=== PATIENT | female | born 1945 | race African-American/Black ===

== ENCOUNTER 2021-02-14 18:54 | Inpatient (IN) | payer OTHER ==
[~2021-02-14] VITALS: Ht 162.6 cm; Wt 105.8 kg
[2021-02-14 19:47] LABS: Basophils # (auto) 0.1 10 ^3/uL (0-0.2); Basophils % (auto) 0.7 % (0.0-2.0); Eosinophils # (auto) 0.2 10 ^3/uL (0-0.8); Eosinophils % (auto) 2.1 % (0.0-7.0); Hematocrit 42.6 % (36.0-46.0); Hemoglobin 14.3 g/dL (12.2-16.2); Lymphocytes # (auto) 1.6 10 ^3/uL (0.4-5.4); Lymphocytes % (auto) 17.4 % (10.0-50.0); Mean Corpuscular Hemoglobin 30.3 pg (28.0-32.0); Mean Corpuscular Hgb Conc. 33.4 g/dL (32.0-36.0); Mean Corpuscular Volume 90.7 fL (80.0-100.0); Monocytes # (auto) 1.1 10 ^3/uL (0-1.3); Monocytes % (auto) 11.8 % (0.0-12.0); Neutrophils # (auto) 6.1 10 ^3/uL (1.6-8.6); Red Cell Distribution Width 14.5 % (11.8-14.3); White Blood Cell 8.9 10^3/uL (4.4-10.8)
[2021-02-14 19:52] LABS: Albumin 2.9 g/dL (3.4-5.0); BUN/Creatinine Ratio 13.2; Calcium 9.3 mg/dL (8.5-10.1); Potassium 3.7 mmol/L (3.5-5.1)
[2021-02-14 20:03] LABS: Bilirubin, Total 1.2 mg/dL (0.2-1.0)
[2021-02-15] MEDS ORDERED: MORPHINE SULFATE INJECTION 2 MG/ML SYRG IV PRN (01:00)
[2021-02-15] MEDS ORDERED: hydrALAZINE HCL 20 MG/ML VL IV PRN (01:00)
[2021-02-15] MEDS ORDERED: MORPHINE SULFATE 4 MG/ML SYR/VIAL IV PRN (01:00)
[2021-02-15] MEDS ORDERED: NITROGLYCERIN 0.4 MG SL TAB SL PRN (01:00)
[2021-02-15] MEDS ORDERED: DOCUSATE SOD 100 MG CAP PO PRN (01:00)
[2021-02-15] MEDS: SODIUM CHLOR 0.9% PF (SALINE LOCK) 10ML VIAL/SYR IV SCH ×3 (06:46→20:40)
[2021-02-15 07:53] LABS: Basophils # (auto) 0.1 10 ^3/uL (0-0.2); Basophils % (auto) 0.8 % (0.0-2.0); Eosinophils # (auto) 0.2 10 ^3/uL (0-0.8); Eosinophils % (auto) 2.1 % (0.0-7.0); Hematocrit 43.2 % (36.0-46.0); Hemoglobin 14.8 g/dL (12.2-16.2); Lymphocytes # (auto) 1.6 10 ^3/uL (0.4-5.4); Lymphocytes % (auto) 17.7 % (10.0-50.0); Mean Corpuscular Hgb Conc. 34.3 g/dL (32.0-36.0); Mean Corpuscular Volume 90.5 fL (80.0-100.0); Monocytes # (auto) 1.1 10 ^3/uL (0-1.3); Neutrophils # (auto) 6.1 10 ^3/uL (1.6-8.6); Neutrophils % (auto) 67.4 % (37.0-80.0); Nucleated Red Blood Cells % 0.1 %; Red Blood Cells 4.77 10^6/uL (4.0-5.20); Red Cell Distribution Width 14.5 % (11.8-14.3)
[2021-02-15 08:12] LABS: Albumin 2.8 g/dL (3.4-5.0); Calcium 9.5 mg/dL (8.5-10.1); Magnesium 2.3 mg/dL (1.6-2.6); Potassium 3.9 mmol/L (3.5-5.1)
[2021-02-15 08:16] LABS: BUN/Creatinine Ratio 17.1; Bilirubin, Total 1.6 mg/dL (0.2-1.0); Total Protein 7.1 g/dL (6.4-8.2)
[2021-02-15] MEDS: FUROSEMIDE 40 MG/4 ML VIAL IV SCH (08:21)
[2021-02-15] MEDS: ISOSORBIDE MONONITRATE ER 60 MG TAB PO SCH (08:21)
[2021-02-15] MEDS: ZINC SULFATE 220mg CAP or TAB PO SCH (08:21)
[2021-02-15] MEDS: MULTIPLE VITAMIN TAB PO SCH (08:22)
[2021-02-15] MEDS: ASCORBIC ACID 500 MG TAB PO SCH ×2 (08:22→20:41)
[2021-02-15] MEDS: ONDANSETRON HCL 4 MG/2 ML VIAL IV PRN (09:45)
[2021-02-15] MEDS ORDERED: FAMOTIDINE 20 MG TAB PO SCH (10:00)
[2021-02-15] MEDS ORDERED: ENOXAPARIN SOD 40 MG/0.4 ML SYRINGE SC SCH (10:00)
[2021-02-15 12:05] VITALS: BP 119/71
[2021-02-15 13:00] VITALS: BP 119/71
[2021-02-15 17:00] VITALS: BP 115/72
[2021-02-15] MEDS ORDERED: FAMO20TA10 PO (18:54)
[2021-02-15] MEDS: FAMOTIDINE 20 MG TAB PO SCH (20:41)
[2021-02-15] MEDS: ENOXAPARIN SOD 100 MG/1 ML SYRINGE SC SCH (20:41)
[2021-02-15] MEDS: ATORVASTATIN 20 MG TAB PO SCH (20:41)
[2021-02-15 22:00] VITALS: BP 105/51
[2021-02-15] MEDS ORDERED: WARF2TAB49 PO (22:35)
[2021-02-15] MEDS ORDERED: ASPI-543 PO (22:38)
[2021-02-15] MEDS ORDERED: BISO1TAB17 PO ×2 (22:38→22:46)
[2021-02-15] MEDS ORDERED: FURO1TAB33 PO (22:38)
[2021-02-15] MEDS ORDERED: DIGO0.12 PO (22:46)
[2021-02-15] MEDS ORDERED: FLUO60TA7 PO (22:46)
[2021-02-15] MEDS ORDERED: ATO40T PO (22:46)
[2021-02-15] MEDS ORDERED: NITR1SPR TL (22:46)
[2021-02-15] MEDS ORDERED: ISOS20TA49 PO (22:46)
[2021-02-15] MEDS ORDERED: SPIR25TA8 PO (22:46)
[2021-02-15] MEDS ORDERED: POTA1TAB61 PO (22:46)
[2021-02-15] MEDS ORDERED: FLUT0.05 NAS (22:46)
[2021-02-15] MEDS ORDERED: SOTA80TA57 PO (22:46)
[2021-02-15] MEDS ORDERED: TIOTCAP (22:46)
[2021-02-15] MEDS ORDERED: IPRA0.03 (22:46)
[2021-02-16 05:00] VITALS: BP 125/52
[2021-02-16] MEDS: SODIUM CHLOR 0.9% PF (SALINE LOCK) 10ML VIAL/SYR IV SCH ×3 (05:45→22:08)
[2021-02-16 07:12] LABS: Basophils # (auto) 0.1 10 ^3/uL (0-0.2); Basophils % (auto) 0.8 % (0.0-2.0); Eosinophils # (auto) 0.1 10 ^3/uL (0-0.8); Eosinophils % (auto) 1.6 % (0.0-7.0); Hematocrit 46.2 % (36.0-46.0); Hemoglobin 15.5 g/dL (12.2-16.2); Lymphocytes # (auto) 1.5 10 ^3/uL (0.4-5.4); Lymphocytes % (auto) 16.1 % (10.0-50.0); Mean Corpuscular Hemoglobin 30.7 pg (28.0-32.0); Mean Corpuscular Hgb Conc. 33.5 g/dL (32.0-36.0); Mean Corpuscular Volume 91.7 fL (80.0-100.0); Monocytes % (auto) 10.3 % (0.0-12.0); Neutrophils # (auto) 6.7 10 ^3/uL (1.6-8.6); Neutrophils % (auto) 71.2 % (37.0-80.0); Red Blood Cells 5.04 10^6/uL (4.0-5.20); Red Cell Distribution Width 14.8 % (11.8-14.3); White Blood Cell 9.3 10^3/uL (4.4-10.8)
[2021-02-16 07:41] LABS: Calcium 9.7 mg/dL (8.5-10.1); Magnesium 2.1 mg/dL (1.6-2.6); Potassium 3.6 mmol/L (3.5-5.1)
[2021-02-16] MEDS ORDERED: IPRATROPIUM BROM 0.5 MG/2.5ML INH SOL NEB PRN (07:45)
[2021-02-16 07:48] LABS: BUN/Creatinine Ratio 17.8; Bilirubin, Total 1.6 mg/dL (0.2-1.0); Total Protein 7.4 g/dL (6.4-8.2)
[2021-02-16 09:00] VITALS: BP 126/67
[2021-02-16 09:27] VITALS: BP 125/52
[2021-02-16] MEDS: FUROSEMIDE 40 MG/4 ML VIAL IV SCH (09:44)
[2021-02-16] MEDS: FAMOTIDINE 20 MG TAB PO SCH ×2 (09:45→22:07)
[2021-02-16] MEDS: ENOXAPARIN SOD 100 MG/1 ML SYRINGE SC SCH (09:45)
[2021-02-16] MEDS: ASCORBIC ACID 500 MG TAB PO SCH ×2 (09:45→22:07)
[2021-02-16] MEDS: MULTIPLE VITAMIN TAB PO SCH (09:46)
[2021-02-16] MEDS: POTASSIUM CHL 10 Meq TABLET PO SCH (09:46)
[2021-02-16] MEDS: ZINC SULFATE 220mg CAP or TAB PO SCH (09:46)
[2021-02-16] MEDS: ISOSORBIDE MONONITRATE ER 60 MG TAB PO SCH (09:46)
[2021-02-16] MEDS: FLUTICASONE PROP NASAL SPR 0.05 % (50MCG) 16GM EACHNOSTRI SCH ×2 (10:40→22:08)
[2021-02-16 13:00] VITALS: BP 113/70
[2021-02-16] MEDS ORDERED: POTASSIUM CHLORIDE 40 MEQ, LIDOCAINE 1% (LOCAL ANESTH.) 4 ML in SODIUM CHL 0.9% 250 ML IV ONE (15:30)
[2021-02-16 17:00] VITALS: BP 106/64
[2021-02-16] MEDS: MAGNESIUM SULFATE 1GM/100ML 100 ML IV SCH ×2 (17:00→17:21)
[2021-02-16 22:00] VITALS: BP 107/72
[2021-02-16] MEDS: ATORVASTATIN 20 MG TAB PO SCH (22:07)
[2021-02-16] MEDS ORDERED: MAGNESIUM SULFATE 1GM/100ML 100 ML IV ONE (22:17)
[2021-02-17] MEDS: MAGNESIUM SULFATE 1GM/100ML 100 ML IV SCH ×2 (00:53→02:10)
[2021-02-17] MEDS ORDERED: MAGNESIUM SULFATE 1GM/100ML 100 ML IV ONE (01:59)
[2021-02-17 05:00] VITALS: BP 129/74
[2021-02-17] MEDS: SODIUM CHLOR 0.9% PF (SALINE LOCK) 10ML VIAL/SYR IV SCH ×3 (05:29→22:18)
[2021-02-17 07:37] LABS: Potassium 4.5 mmol/L (3.5-5.1)
[2021-02-17 07:39] LABS: INR 1.92 (0.9-1.15)
[2021-02-17 07:45] LABS: Magnesium 2.8 mg/dL (1.6-2.6)
[2021-02-17] MEDS: ONDANSETRON HCL 4 MG/2 ML VIAL IV PRN (08:02)
[2021-02-17] MEDS: ISOSORBIDE MONONITRATE ER 60 MG TAB PO SCH (09:04)
[2021-02-17] MEDS: METOPROLOL SUCCINATE XL 50 MG TAB PO SCH (09:04)
[2021-02-17] MEDS: ASCORBIC ACID 500 MG TAB PO SCH ×2 (09:04→22:18)
[2021-02-17] MEDS: FAMOTIDINE 20 MG TAB PO SCH ×2 (09:05→22:18)
[2021-02-17] MEDS: FUROSEMIDE 40 MG/4 ML VIAL IV SCH (09:05)
[2021-02-17] MEDS: MULTIPLE VITAMIN TAB PO SCH (09:05)
[2021-02-17] MEDS: ZINC SULFATE 220mg CAP or TAB PO SCH (09:05)
[2021-02-17] MEDS: POTASSIUM CHL 10 Meq TABLET PO SCH (09:06)
[2021-02-17] MEDS: FLUTICASONE PROP NASAL SPR 0.05 % (50MCG) 16GM EACHNOSTRI SCH ×2 (09:15→22:18)
[2021-02-17 09:19] VITALS: BP 131/65
[2021-02-17] MEDS ORDERED: ENOXAPARIN SOD 40 MG/0.4 ML SYRINGE SC SCH (10:00)
[2021-02-17 13:00] VITALS: BP 111/72
[2021-02-17 16:29] VITALS: BP 113/65
[2021-02-17] MEDS ORDERED: WARFARIN SODIUM 2 MG TAB PO ONE (17:00)
[2021-02-17 22:00] VITALS: BP 99/60
[2021-02-17] MEDS: ATORVASTATIN 20 MG TAB PO SCH (22:18)
[2021-02-18 05:00] VITALS: BP 104/71
[2021-02-18] MEDS: SODIUM CHLOR 0.9% PF (SALINE LOCK) 10ML VIAL/SYR IV SCH ×3 (05:15→21:36)
[2021-02-18] MEDS: ONDANSETRON HCL 4 MG/2 ML VIAL IV PRN (06:09)
[2021-02-18 07:11] LABS: INR 1.65 (0.9-1.15)
[2021-02-18] MEDS ORDERED: ADENOSINE 88 MG in GIVE UN-DILUTED 0 ML IV STA (08:07)
[2021-02-18 09:03] VITALS: BP 100/54
[2021-02-18] MEDS: METOPROLOL SUCCINATE XL 50 MG TAB PO SCH (10:00)
[2021-02-18] MEDS: ISOSORBIDE MONONITRATE ER 60 MG TAB PO SCH (10:00)
[2021-02-18] MEDS: FUROSEMIDE 40 MG/4 ML VIAL IV SCH (10:52)
[2021-02-18] MEDS: ZINC SULFATE 220mg CAP or TAB PO SCH (10:52)
[2021-02-18] MEDS: FLUTICASONE PROP NASAL SPR 0.05 % (50MCG) 16GM EACHNOSTRI SCH ×2 (10:52→21:37)
[2021-02-18] MEDS: FAMOTIDINE 20 MG TAB PO SCH ×2 (10:53→21:37)
[2021-02-18] MEDS: POTASSIUM CHL 10 Meq TABLET PO SCH (10:53)
[2021-02-18] MEDS: MULTIPLE VITAMIN TAB PO SCH (10:53)
[2021-02-18] MEDS: ASCORBIC ACID 500 MG TAB PO SCH ×2 (10:54→21:37)
[2021-02-18 13:00] VITALS: BP 116/78
[2021-02-18 16:59] VITALS: BP 114/70
[2021-02-18] MEDS ORDERED: WARFARIN SODIUM 5 MG TAB PO SCH (17:00)
[2021-02-18] MEDS: ATORVASTATIN 20 MG TAB PO SCH (21:37)
[2021-02-18 22:00] VITALS: BP 125/86
[2021-02-19 05:00] VITALS: BP 106/77
[2021-02-19] MEDS: SODIUM CHLOR 0.9% PF (SALINE LOCK) 10ML VIAL/SYR IV SCH ×2 (06:21→15:22)
[2021-02-19 07:54] LABS: INR 1.72 (0.9-1.15); Partial Thromboplastin Time 33.1 sec (23.6-33.0)
[2021-02-19 07:58] LABS: Basophils # (auto) 0 10 ^3/uL (0-0.2); Basophils % (auto) 0.3 % (0.0-2.0); Eosinophils # (auto) 0.1 10 ^3/uL (0-0.8); Eosinophils % (auto) 1.4 % (0.0-7.0); Hematocrit 44.3 % (36.0-46.0); Lymphocytes # (auto) 1.5 10 ^3/uL (0.4-5.4); Lymphocytes % (auto) 15.5 % (10.0-50.0); Mean Corpuscular Hemoglobin 30.7 pg (28.0-32.0); Mean Corpuscular Hgb Conc. 33.9 g/dL (32.0-36.0); Mean Corpuscular Volume 90.5 fL (80.0-100.0); Monocytes % (auto) 10.4 % (0.0-12.0); Neutrophils # (auto) 6.8 10 ^3/uL (1.6-8.6); Neutrophils % (auto) 72.4 % (37.0-80.0); Nucleated Red Blood Cells % 0.1 %; Red Cell Distribution Width 14.4 % (11.8-14.3); White Blood Cell 9.4 10^3/uL (4.4-10.8)
[2021-02-19 09:37] VITALS: BP 126/64
[2021-02-19] MEDS ORDERED: FUROSEMIDE 20 MG TAB PO SCH (10:00)
[2021-02-19] MEDS ORDERED: METOPROLOL SUCCINATE XL 50 MG TAB PO SCH (10:00)
[2021-02-19] MEDS: ONDANSETRON HCL 4 MG/2 ML VIAL IV PRN (10:07)
[2021-02-19] MEDS: ASCORBIC ACID 500 MG TAB PO SCH (10:08)
[2021-02-19] MEDS: ZINC SULFATE 220mg CAP or TAB PO SCH (10:08)
[2021-02-19] MEDS: FAMOTIDINE 20 MG TAB PO SCH (10:08)
[2021-02-19] MEDS: MULTIPLE VITAMIN TAB PO SCH (10:08)
[2021-02-19] MEDS: ISOSORBIDE MONONITRATE ER 60 MG TAB PO SCH (10:09)
[2021-02-19] MEDS: FLUTICASONE PROP NASAL SPR 0.05 % (50MCG) 16GM EACHNOSTRI SCH (10:27)
[2021-02-19 11:56] LABS: BUN/Creatinine Ratio 17.7; Calcium 9.6 mg/dL (8.5-10.1); Magnesium 2.6 mg/dL (1.6-2.6); Potassium 4.2 mmol/L (3.5-5.1)
[2021-02-19 13:00] VITALS: BP 106/71
[2021-02-19 14:47] VITALS: BP 126/64
[2021-02-19] MEDS ORDERED: WARFARIN SODIUM 5 MG TAB PO ONE (17:00)
== END 2021-02-19 17:50 | disposition home health service (06) | DRG 280 ==
LOC: EDBD 18:54 → EDUNIT# 18:54 → ER 18:57 → TELE 02-15 00:51 → TELE-WESTW 02-15 12:45
PROVIDERS: ADMIT Nurse Practitioner Family; ATTEND Internal Medicine
PROC: 4B02XTZ Measurement of Cardiac Defibrillator, External Approach (ICD-10-PCS; principal; 2021-02-16)
DX: I47.2 Ventricular tachycardia (principal); I50.43 Acute on chronic combined systolic (congestive) and diastolic (congestive) heart failure; I21.4 Non-ST elevation (NSTEMI) myocardial infarction; N17.0 Acute kidney failure with tubular necrosis; I13.0 Hypertensive heart and chronic kidney disease with heart failure and stage 1 through stage 4 chronic kidney disease, or unspecified chronic kidney disease; E44.0 Moderate protein-calorie malnutrition; Z68.41 Body mass index [BMI] 40.0-44.9, adult; R73.9 Hyperglycemia, unspecified; I48.0 Paroxysmal atrial fibrillation; E87.6 Hypokalemia; Z20.822 Contact with and (suspected) exposure to COVID-19; J45.909 Unspecified asthma, uncomplicated; N18.9 Chronic kidney disease, unspecified; Z80.9 Family history of malignant neoplasm, unspecified; Z83.3 Family history of diabetes mellitus; Z95.810 Presence of automatic (implantable) cardiac defibrillator; Z90.49 Acquired absence of other specified parts of digestive tract; Z88.8 Allergy status to other drugs, medicaments and biological substances; I25.2 Old myocardial infarction
CPT/HCPCS: 36415; 71045; 78452; 80048; 80053; 80061; 80162; 83735; 83880; 84132; 84484; 85025; 85610; 85730; 87426; 93005; 93017; 93306; 96372; 96374; 96375; 97116; 97530; G0378; J0153; J2001; J2405